=== PATIENT | male | born 1975 | race Caucasian/White ===

== ENCOUNTER 2024-12-27 23:56 | Emergency (ER) | payer OTHER, SELFPAY ==
[2024-12-28 00:02] VITALS: BP 144/90
[2024-12-28 00:03] VITALS: BMI 24.7
--- NOTE | 2024-12-28 00:18 | ED.GENMED ---
History of Present Illness
<Kylah Jones MD, Resident - Last Filed: 12/28/24 00:31>
General
Chief Complaint: Flank Pain
Source: patient
Exam Limitations: none
Time Seen by Provider: 12/28/24 00:09
Nursing documentation reviewed up to this point in time: agreed with
History of Present Illness
History of Present Illness:
49-year-old male comes from a correctional facility due to left flank pain that began around 2 days ago. He had flank pain alongside nausea and has been going on for 2 days however earlier tonight while he was showering patient tried to maneuver
himself by moving his back and the pain ended becoming much worse. He says that he has had some fever and chills alongside of this. He describes the pain as dull and sharp and dull. It stays in one area but he also has some left lower abdominal
pain as well. On his way here from the facility, he EMS gave him some Toradol which helped only a little bit. He says that he does not have any history of kidney stones. Says that he had some trouble urinating earlier today but he did not notice
any pain or burning. He does not have any chest pain or shortness of breath but he does say that when he takes a deep breath he can have pain in his left flank. Does not have any vomiting at the moment.
Past History
<Kylah Jones MD, Resident - Last Filed: 12/28/24 00:31>
Past History
ED Past Medical History: HTN, Other (Endocarditis) and Other (Alcohol (sober x7 years) and substance abuse)
ED Past Surgical History: Orthopedic (Wrist surgery) and Other (Dental work)
Patient has exhibited threatening behavior?: No
Social History
Alcohol: Former
[facility]: [facility]
Review of Systems
<Kylah Jones MD, Resident - Last Filed: 12/28/24 00:31>
Review of Systems
Allergies reviewed?: Yes
Constitutional: Reports fever and chills
EENT: Reports no symptoms
Respiratory: Reports no symptoms
Cardiac: Reports no symptoms
ABD/GI: Reports abdominal pain and nausea; Denies vomiting
: Reports flank pain (Left-sided) and difficulty voiding
Musculoskeletal: Reports no symptoms
Skin: Reports no symptoms
Neurological: Reports no symptoms
Endocrine: Reports no symptoms
Hematologic/Lymphatic: Reports no symptoms
Psychiatric: Reports no symptoms
Phy Exam
<Kylah Jones MD, Resident - Last Filed: 12/28/24 00:31>
General Physical Exam
General Presentation: moderate distress
General Skin: warm and dry
General Habitus: normal
General Mental: alert
Cardiovascular Exam
Cardiovascular Exam: regular rate/rhythm, no edema and no murmur
Pulmonary Exam
Pulmonary Exam: lungs clear, no respiratory distress, no crackles and no wheezing
Neurological Exam
Neurological Exam: alert, oriented x3 and speech normal
Musculoskeletal Exam
Musculoskeletal Exam: back pain (Left flank markedly tender)
Skin Exam
Skin Exam: normal color and warm/dry
Psychiatric Exam
Psychiatric Exam: anxious
Course
<Kylah Jones MD, Resident - Last Filed: 12/28/24 00:31>
Orders/Labs/Results
Orders:
Orders
12/28/24 00:15
Ketorolac [Toradol] 15 mg IV NOW STA
Morphine Sulfate 4 mg IV NOW STA
Ondansetron Injectable [Zofran] 4 mg IV NOW STA
Tamsulosin [Flomax] 0.4 mg PO NOW STA
12/28/24 00:16
CT Abd/pel Without Iv Or Oral Urgent
Comment:
Reason For Exam: l flank pain
12/28/24 00:17
0.9% Sodium Chloride 1000 ml [Nss] 1,000 ml IV BOLUS
12/28/24 00:43
IV Insert/Care/Rem.- Treatment PRN
12/28/24 00:46
Basic Metabolic Panel Urgent
Complete Blood Count/With Diff Urgent
12/28/24 01:53
Urinalysis Reflex To Culture Urgent
Date Specimen was Collected: 12/28/24
Time Specimen was Collected: 01:50
Urine Microscopic Reflex Cult Urgent
Abnormal Lab Results
12/28/24 12/28/24
00:46 01:53
MCV 79.5 L fL
(80.0-94.0)
MCH 26.2 L pg
(27.0-31.0)
RDW 15.2 H %
(11.5-14.5)
Carbon Dioxide 21 L mmol/L
(22-30)
Ur Occult Blood Reflex 1+ A
(Negative)
Urine RBC 11-15 A /HPF
(0-2)
Urine Bacteria (Reflex) Few A
(Negative)
12/28/24 00:46
12/28/24 00:46
Vital Signs
Initial and Last Documented VS:
Initial Vital Signs
Temp Pulse Resp Pulse Ox
97.7 F 82 18 100
12/27/24 23:59 12/27/24 23:59 12/27/24 23:59 12/27/24 23:59
Last Documented Vital Signs
Temp Pulse Resp BP Pulse Ox
97.7 F 82 18 116/70 84
12/27/24 23:59 12/27/24 23:59 12/27/24 23:59 12/28/24 02:00 12/28/24 02:00
<Giovani Cutler, DO - Last Filed: 12/28/24 03:12>
Orders/Labs/Results
Orders:
Orders
12/28/24 00:15
Ketorolac [Toradol] 15 mg IV NOW STA
Morphine Sulfate 4 mg IV NOW STA
Ondansetron Injectable [Zofran] 4 mg IV NOW STA
Tamsulosin [Flomax] 0.4 mg PO NOW STA
12/28/24 00:16
CT Abd/pel Without Iv Or Oral Urgent
Comment:
Reason For Exam: l flank pain
12/28/24 00:17
0.9% Sodium Chloride 1000 ml [Nss] 1,000 ml IV BOLUS
12/28/24 00:43
IV Insert/Care/Rem.- Treatment PRN
12/28/24 00:46
Basic Metabolic Panel Urgent
Complete Blood Count/With Diff Urgent
12/28/24 01:53
Urinalysis Reflex To Culture Urgent
Date Specimen was Collected: 12/28/24
Time Specimen was Collected: 01:50
Urine Microscopic Reflex Cult Urgent
Abnormal Lab Results
12/28/24 12/28/24
00:46 01:53
MCV 79.5 L fL
(80.0-94.0)
MCH 26.2 L pg
(27.0-31.0)
RDW 15.2 H %
(11.5-14.5)
Carbon Dioxide 21 L mmol/L
(22-30)
Ur Occult Blood Reflex 1+ A
(Negative)
Urine RBC 11-15 A /HPF
(0-2)
Urine Bacteria (Reflex) Few A
(Negative)
12/28/24 00:46
12/28/24 00:46
Vital Signs
Initial and Last Documented VS:
Initial Vital Signs
Temp Pulse Resp Pulse Ox
97.7 F 82 18 100
12/27/24 23:59 12/27/24 23:59 12/27/24 23:59 12/27/24 23:59
Last Documented Vital Signs
Temp Pulse Resp BP Pulse Ox
97.7 F 82 18 116/70 84
12/27/24 23:59 12/27/24 23:59 12/27/24 23:59 12/28/24 02:00 12/28/24 02:00
<Kylah Jones MD, Resident - Last Filed: 12/28/24 00:31>
MDM/Problems Addressed
Differential Diagnosis Includes:
Nephrolithiasis, ascending UTI, muscle spasms
MDM/Problems Addressed:
49-year-old male comes from a correctional facility due to left flank pain that began around 2 days ago.
Highly suspicious for urinary stone, will give IV fluids, give pain medicine as needed.
Will check urinalysis send for CT abdomen pelvis without IV or oral contrast to check for urinary stone.
Will Check basic labs
Depending on size of stone we will have to consult GI for further management versus seeing if stone can be passed by itself or with aid with medications.
<Kylah Jones MD, Resident - Last Filed: 12/28/24 00:31>
*Pulse Oximetry
SaO2: 100
Oxygen Mode of Delivery: Room air
Patient hypoxic: no
*Critical Care Note
Total Time (30-74mins, 75-104mins- exclusive of procedures): Not Applicable
<Giovani Cutler DO - Last Filed: 12/28/24 03:12>
Update Note
Update Note:
NAME: GIOVANI VEGA
DATE OF EXAM: 12/28/2024
Patient No: [id number]
Physician: BABAK^ALICE
Date of : 1975
Past Medical History (entered by Technologist):
Reason For Exam (entered by Technologist):
Other Notes (entered by Technologist): L flank pain X 2 days. +nausea
No prior
Additional Information (per [facility]):
CT abdomen/pelvis without contrast
No comparison exam
IMPRESSION:
No obstructing renal stone or hydronephrosis.
Low-attenuation renal lesions likely cysts though incompletely Assessed without contrast.
No perinephric fat stranding.
Bladder is unremarkable.
No bowel obstruction.
No free air or free fluid.
9 mm low-attenuation lesion proximal pancreatic body possibly a cyst or cystic lesion such as IPMN. Assessment limited on this noncontrast exam.
Partial fatty replacement pancreas.
Gallbladder is unremarkable.
Normal appendix.
Small bilateral fat-containing inguinal hernias.
Small fat-containing umbilical hernia.
Degenerative changes spine
Results finalized 2:57 AM ET. Please call with any questions.
ED Attending Note
<Kylah Jones MD, Resident - Last Filed: 12/28/24 00:31>
-
Portions of this chart may have been created with voice recognition software.� Occasional wrong word or��sound alike� substitutions may have occurred due to the inherent limitations of voice recognition software.
<Giovani Cutler DO - Last Filed: 12/28/24 03:12>
ED Attending Note
Patient seen and examined by attending physician: Yes
ED Attending Note:
Note:
CHIEF COMPLAINT(S)
Lower back pain.
HISTORY OF PRESENT ILLNESS
The patient is a 49-year-old male who presented with lower back pain. He underwent a computed tomography (CT) scan of the abdomen, which appeared normal. However, urinalysis revealed hematuria. Based on the symptoms and findings, the likely
diagnosis is a passed kidney stone, which may have caused irritation and tearing as it moved through the ureter, likened to a sharp object passing through a fabric. The patient continues to experience back pain, which should resolve within
approximately four hours as the irritation subsides.
PLAN
The patient was prescribed Voltaren, a non-narcotic medication, similar to ibuprofen, for pain management. It is advised to fill the prescription at the earliest opportunity. [id number] ibuprofen can be taken if Voltaren is unavailable
immediately, but the two should not be combined. A referral to a urologist was offered should further consultation be needed, although the patient does not live locally. The patient expressed understanding and had no further questions.
DIFFERENTIAL DIAGNOSIS
The Differential Diagnosis includes, in no particular order and is not limited to:
1. Kidney stone recently passed
2. Urinary tract infection
3. Muscular strain
4. Kidney infection (pyelonephritis)
5. Herniated disc
6. Spinal stenosis
7. Renal tumor
8. Abdominal aortic aneurysm
9. Prostatitis
10. Renal infarction
Discharge Plan
Departure
Patient Disposition: Alf
Date of Disposition: 12/28/24
Time of Disposition: 03:06
Patient with high blood pressure during this ER visit?: No
Condition: Fair
Discharge Problem:
Hematuria, Acute flank pain
Instructions: Flank Pain (DC), BLOOD PRESSURE
Prescriptions:
New
diclofenac sodium 75 mg tablet,delayed release (DR/EC)
75 mg PO BID Qty: 10 0RF
Referrals:
[facility],Facility [Family Provider, General]
Marvin London Jr., MD [Active, Urology]
Activity Restrictions/Additional Instructions:
Thank You for choosing [facility].
It was a pleasure meeting you and taking part in your care. We hope for your continued healing and wellness.
Please read discharge instructions in their entirety. However, they are for general education and may not describe your exact diagnosis at discharge. Information on your ER visit and medical conditions were discussed with you along with appropriate
follow up information...
If indicated, please take your medications as instructed and indicated on discharge paperwork.
Please schedule a follow up appointment as directed. Call to schedule an appointment
Please return to the emergency department with ANY change in, persisting, or worsening of symptoms. If any of your symptoms do not improve, or persist, or become more severe within 6-12 hours, please return to the emergency department for further
care.
Please return to the emergency department if you develop a headache, neck pain/stiffness, fever greater than 100.4F, chest pain, shortness of breath, persistent nausea, vomiting, slurred speech, difficulty walking, numbness/tingling, weakness, signs
of infection or any other symptoms that are worrisome to you.
If you have any questions or concerns please do not hesitate to call the Hospital at
Interventions
Interventions:
*Risk Screen - Suicide Last Done: 12/27/24 23:59
*General Assessment Last Done: 12/27/24 23:59
*Neglect/Abuse Screening Last Done: 12/28/24 00:05
*ED- Fall Risk Assessment Last Done: 12/28/24 00:05
*ED COVID-19 Vaccine History Last Done: 12/28/24 00:05
KF-Hgozcb-Mofuzdmxuh Assessment Last Done: 12/28/24 00:30
ED-Male Genitourinary Assessment Last Done: 12/28/24 00:30
Discharge Date and Time
Print Language: SAMI
[2024-12-28] MEDS: ZOFRAN 4 MG IV (00:46)
[2024-12-28] MEDS: NSS 1000 IV (00:47)
[2024-12-28] MEDS: MORPHINE SULFATE 4 MG IV (00:48)
[2024-12-28] MEDS: TORADOL 15 MG IV (00:48)
[2024-12-28] MEDS: FLOMAX 0.4 MG PO (00:53)
[2024-12-28 00:56] LABS: Hematocrit 47.6 % (39.0-52.0); Hemoglobin 15.7 g/dL (13.0-18.0); Mean Corp Hgb Conc. 33.0 g/dL (33.0-37.0); Mean Corpuscular Volume 79.5 fL (80.0-94.0); Nucleated Red Blood Cells % 0 % (-); Platelet Count 299 10^3/uL (130-400); Red Cell Dist. Width 15.2 % (11.5-14.5)
[2024-12-28 01:00] VITALS: BP 132/109
[2024-12-28 01:14] LABS: Blood Urea Nitrogen 15 mg/dl (9-20); Calcium 9.3 mg/dl (8.4-10.2); Carbon Dioxide 21 mmol/L (22-30); Chloride 106 mmol/L (98-107); Estimated Creatinine Clearance 106 ml/min; Glucose 95 mg/dl (70-99); Sodium 137 mmol/L (135-145); eGFR > 60.00
[2024-12-28 02:00] VITALS: BP 116/70
[2024-12-28 02:04] LABS: Urine Character Clear (Clear)
[2024-12-28 02:21] LABS: Urine Squamous Cell 26-30 /LPF (Few)
[2024-12-28 02:23] LABS: Urine White Cell 0-2 /HPF (0-5)
[2024-12-28 03:19] VITALS: BP 120/72
== END 2024-12-28 03:20 ==
LOC: EMR 23:56
PROVIDERS: EMERGENCY PHYSICIAN Student in an Organized Health Care Education/Training Program
DX: R31.9 Hematuria, unspecified (principal); R10.9 Unspecified abdominal pain; I10 Essential (primary) hypertension; I38 Endocarditis, valve unspecified; F19.10 Other psychoactive substance abuse, uncomplicated
CPT/HCPCS: 99284; 96374; 96375; 96361; 74176; 80048; 81003; 81015; 85025